=== PATIENT | male | born 1985 | race Asian ===

== ENCOUNTER 2020-04-27 14:47 | Emergency (ER) | payer OTHER ==
[2020-04-27 14:52] VITALS: BP 116/80; PULSE 82; TEMP 98.2; BMI 29.2
[2020-04-27] MEDS ORDERED: IBUPROFEN 600 MG TABLET (FP) PO ONE ×2 (15:17→15:18)
--- NOTE | 2020-04-27 15:48 | PDOC ---
History of Present Illness - General Chief Complaint: Injury Stated Complaint: LT WRIST INJURY Time Seen by Provider: 04/27/20 15:14 History Source: Patient Exam Limitations: No Limitations - History of Present Illness Initial Comments: 04/27/20 15:43 Patient is a 34-year-old male who presents to the ED with left wrist pain after he tripped and fell while playing [employer] yesterday evening. He states he fell back onto his outstretched wrist. He states since then his wrist has been swollen and painful. He states the swelling was worse yesterday. He denies any numbness or tingling. He has put BenGay on his wrist with little relief. He denies any numbness or tingling. He is right-hand dominant. Past History - Medical History Allergies/Adverse Reactions: Allergies Allergy/AdvReac Type Severity Reaction Status Date / Time Sulfa (Sulfonamide Allergy Unknown Verified 04/27/20 14:48 Antibiotics) Home Medications: Ambulatory Orders Acetaminophen with Codeine [Tylenol with Codeine #3 Tablet] 1 each PO PRN PRN 06/19/16 levoFLOXacin [Levaquin -] 500 mg PO DAILY 06/19/16 Anemia: No Asthma: No Cancer: No Cardiac Disorders: No CVA: No COPD: No CHF: No Dementia: No Diabetes: No GI Disorders: No Disorders: Yes (KIDNEY STONES) HTN: No Hypercholesterolemia: No Liver Disease: No Seizures: No Thyroid Disease: No - Psycho-Social/Smoking History Smoking History: Never smoked Number of Cigarettes Smoked Daily: 15 'Breaking Loose' booklet given: 06/18/16 - Substance Abuse Hx (Audit-C & DAST Scrn) How often the patient has a drink containing alcohol: Never Score: In Men: 4 or > Positive; In Women: 3 or > Positive: 0 Screen Result (Pos requires Nsg. Audit-10AR): Negative In the last yr the pt used illegal drug/Rx for NonMed reason: No Score: Yes response is considered Positive: 0 Screen Result (Positive result requires Nsg. DAST-10): Negative Review of Systems - Review of Systems Comments:: 04/27/20 15:45 - Review of Systems Able to Perform ROS?: Yes Constitutional: No: Fever, Chills, Loss of Appetite, Night Sweats, Weakness HEENTM: No: Eye Pain, Vision changes, Ear Pain, Throat Pain, Throat Swelling, Mouth Pain, Difficulty Swallowing Respiratory: No: Cough, Shortness of Breath, Wheezing, Sputum Production Cardiac (ROS): No: Chest Pain, Chest Tightness, Palpitations, Irregular Heart Beat, Edema ABD/GI: No: Nausea, Vomiting, Abdominal Pain, Diarrhea : No Dysuria, No Hematuria, No Frequency, No Urgency Musculoskeletal: No: Muscle Pain, Back Pain, Muscle Weakness, Neck Pain; positive: Left wrist injury Integumentary: No: Lesions, Rash Neurological: No: Headache, Numbness, Tingling, Weakness, Speech Difficulties *Physical Exam - Vital Signs Last Vital Signs Temp Pulse Resp BP Pulse Ox 98.2 F 82 18 116/80 98 04/27/20 14:49 04/27/20 14:49 04/27/20 14:49 04/27/20 14:49 04/27/20 14:49 - Physical Exam 04/27/20 15:45 - Physical Exam General Appearance: Nourished, Appropriately Dressed, No Distress Neck: Supple, No Lymphadenopathy (R), No Lymphadenopathy (L), No Rigidity, No Decreased range of motion Respiratory/Chest: Lungs Clear, Normal Breath Sounds. No Respiratory Distress, No Accessory Muscle Use Cardiovascular: Regular Rhythm, Regular Rate, S1, S2 Musculoskeletal: Normal Inspection. No Decreased Range of Motion; left wrist with hematoma appreciated to the dorsum of the wrist. No tenderness over the scaphoid with palpation or axial loading of the thumb. Full range of motion of all fingers at the DIP, PIP and MCPs. Decreased wrist range of motion secondary to pain. Sensation intact to the radial, median and ulnar nerve distributions. Brisk capillary refill distally. Extremity: Normal Capillary Refill, Normal Inspection Integumentary: Normal Color, Dry. No Rash Neurologic: real estate account executive II-XII NML intact, Fully Oriented, Alert, Normal Mood/Affect, No rmal Response ED Treatment Course - RADIOLOGY Radiology Studies Ordered: Category Date Time Status WRIST W/HAND-LEFT* [RAD] Stat Radiology 04/27/20 15:17 Completed - Medications Given in the ED: ED Medications Discontinued Medications Generic Name Dose Route Start Last Admin Trade Name Freq PRN Reason Stop Dose Admin Ibuprofen 600 mg 04/27/20 15:17 04/27/20 15:19 Motrin - PO 04/27/20 15:18 600 mg ONCE ONE Administration Medical Decision Making - Medical Decision Making 04/27/20 15:46 Assessment: Patient is a 34-year-old male with a left wrist injury after a trip and fall yesterday. Plan: -Left wrist x-ray performed including scaphoid view which shows no acute fracture, read by the radiologist and reviewed by me -Motrin given in the ED -Left wrist brace placed -The patient has been made aware that he could follow-up with orthopedic hand surgery for further evaluation and treatment. He understands and agrees with this treatment plan and he is stable for discharge. Discharge - Discharge Information Problems reviewed: Yes Clinical Impression/Diagnosis: Left wrist sprain Qualifiers: Encounter type: initial encounter Qualified Code(s): S63.502A - Unspecified sprain of left wrist, initial encounter Condition: Stable Disposition: HOME - Follow up/Referral Referrals: Giselle Arredondo MD [Primary Care Provider] - Marky Erickson MD [Staff Physician] - - Patient Discharge Instructions Patient Printed Discharge Instructions: DI for Wrist Sprain Additional Instructions: Ice and elevate your wrist. Wear the wrist brace at all times except you can remove it while showering or eating. Follow-up with orthopedic hand surgery for further evaluation and treatment. Take Tylenol or ibuprofen for pain. - Post Discharge Activity Work/Back to School Note: Back to Work
== END 2020-04-27 15:49 | disposition home or self-care (01) ==
LOC: JERFT 14:47
DX: S63.502A Unspecified sprain of left wrist, initial encounter (principal)
CPT/HCPCS: 73110-TC-LT-FY; 73130-TC-LT-FY; 99283-25